=== PATIENT | male | born 1940 | race Caucasian/White ===

== ENCOUNTER 2025-06-14 10:04 | Outpatient (OUT) | payer MEDICARE, OTHER, SELFPAY ==
--- OUTSIDE RECORDS SUMMARY | 2025-06-14 10:13 | XMS_ITS | Clinical Summary ---
Author Organization [facility] Address [address] [address] Care Team Providers Care Nursing Technician Name Role Phone Unavailable Primary Care Provider Unavailabl e Social History Tobacco Use Types Packs/Day Years Used Date Smoking Tobacco: Never Assessed [place] Safety & Environment Answer Date Rec orded Fear of Current or Ex-Partner Not on file Emotionally Abused Not on file 12/26/2023 Physically Abused Not on file 12/26/2023 Sexually Abused Not on file 12/26/2023 Physically or Sexually Abused Not on file Sex and Gender Information Value Date Recorded Sex Assigned at Not on file Legal Sex Male 10:43 PM EDT Gender Identity Not on file Sexual Orientation Not on file Last Filed Vital Signs Vital Sign Reading Time Taken Comments Blood Pressure 136/91 05/26/2021 1:47 PM EDT Pulse 43 06/12/2019 9:44 AM EDT Temperature - - Respiratory Rate - - Oxygen Saturation 94% 05/26/2021 1:47 PM EDT Inhaled Oxygen Concentration - - Weight 98 kg (216 lb) 05/26/2021 1:42 PM EDT Height 175.3 cm (5' 9 ) 05/26/2021 1:42 PM EDT Body Mass Index 31.9 05/26/2021 1:42 PM EDT Plan of Treatment Health Maintenance Due Date Last Done Comments Medicare Annual Wellness (AWV) 1942 Depression Screening 1954 Adult Tetanus 1964 Pneumococcal Vaccine: 50+ Ye ars (1 of 1 - PCV) 1992 Zoster Vaccines (1 of 2) 1992 Fall Risk Screening 2007 COVID-19 Vaccine (2023-2 5 season) 2024 Influenza Vaccine (#1) 2025 HIB Vaccines Aged Out No longer eligi ble based on patient's age to complete this topic HPV Vaccines Aged Out No longer eligi ble based on patient's age to complete this topic IPV Vaccines Aged Out No longer eligi ble based on patient's age to complete this topic Meningococcal B Vaccine Aged Out No l onger eligible based on patient's age to complete this topic Meningococcal Vaccine Aged Out No jenifer mayo eligible based on patient's age to complete this topic Rotavirus Vaccines Aged Out No longer eligible based on patient's age to complete this [place] [phone]
--- OUTSIDE RECORDS SUMMARY | 2025-06-14 10:13 | XMS_ITS | Encounter Summary ---
Author Organization [facility] Address [address] [place] [address] Care Team Providers Care Gas Engine Repairer Name Role Phone Quinn Flynn MD Primary Care Provider Encounter Details Date Type Department Care Team (Late st Contact Info) Description 10/31/2023 Orders Only Dermatology [address] [address] Parth Melgar MD [address] [place] [address] Social History Tobacco Use Types Packs/Day Years Used Date Smoking Tobacco: Former Cigarettes 1 1957 Smokeless Tobacco: Never Sex and Gender Information Value Date Recorded Sex Assigned at Not on file Legal Sex Male 4:40 PM EST Gender Identity Not on file Sexual Orientation Not on file documented as of this encounter Plan of Treatment Upcoming Encounters Date Type Department Care Team (Late st Contact Info) Description 10/13/2025 11:30 AM EST Office Visit Dermatology [address] [address] Priscila Rutledge PA-C [address] [place] [address] documented as of this encounter Procedures Procedure Name Priority Date/Time Associated Diagnosis Comments SPLIT BIOPSY DERM Routine 10/31/2023 2:0 4 PM EST documented in this encounter Results * Split Biopsy Derm (10/31/2023 2:04 PM EST) Shave Bx (Right Forehead) 10/31/2023 2:04 PM EST Shave Bx (Mid Lower Back) 10/31/2023 2:06 PM EST Impressions [facility] - 11/11/2023 9:38 PM EST CASE: [id number] PATIENT: KINDRA LUJAN DIAGNOSIS: B: RIGHT UPPER FOREHEAD ACTINIC KERATOSIS ARISING IN SOLAR LENTIGO. C: LOWER BACK MELANOCYTIC NEVUS, COMPOUND TYPE. MICROSCOPIC: B: RIGHT UPPER FOREHEAD An actinic (solar) keratosis is present which displays foci of parakeratosis. Below the zones of parakeratosis there is disorderly maturation of the stratified squamous epithelium with pleomorphic and dyskeratotic keratinocytes. The underlying dermis is solar damaged. The stratum corneum is basket weave. The epithelium shows lentiginous epidermal hyperplasia with budding and elongation of the rete ridges. There is hyperpigmentation of basilar keratinocytes and slightly increased numbers of solitary melanocytes along the basal layer. The papillary dermis displays a sparse perivascular lymphocytic infiltrate with melanophages. The dermis is solar damaged. Multiple profiles were examined. Melan-A immunostaining fails to reveal a melanocytic proliferation. I have personally reviewed the slide quality of the immunohistochemical stain(s). The negative and positive controls were appropriate and adequate for the IHC stains listed. C: LOWER BACK A melanocytic nevus of the compound type is present characterized by a regular arrangement of nests of melanocytes along the dermo-epidermal junction and maturing nests of nevus cells in the dermis. Multiple profiles were examined. Melan-A immunostain supports the diagnosis. I have personally reviewed the slide quality of the immunohistochemical stain(s). The negative and positive controls were appropriate and adequate for the IHC stains listed. Date of Report: 11/11/2023 Received from the laboratory are two microscopic glass slides labeled B and C. The referring physician retained specimen A. LOCATION AND CLINICAL IMPRESSION OF REFERRING PHYSICIAN: B. RIGHT UPPER FOREHEAD shave 0.9 x 0.6 x 0.1cm seborrheic keratosis vs. lentigo maligna C. LOWER BACK shave 0.9 x 0.5 x 0.1cm seborrheic keratosis vs. lentigo maligna Charlotte Rogers MD, Dermatopathologist Electronically authenticated 11/11/2023; 21:37 Priscila TERRY LAB PATH/CYTO ORDERABLES Final Result [facility] [address] [place] [address], documented in this encounter Visit Diagnoses Not on filedocumented in this encounter Care Teams Gas Engine Repairer Relationship Specialty Start Date End Date Quinn Flynn MD [address] [place] [address] PCP - General 09/30/23 documented as of this encounter
--- OUTSIDE RECORDS SUMMARY | 2025-06-14 10:13 | XMS_ITS | Encounter Summary ---
Author Organization [facility] Address [address] [place] [address] Care Team Providers Care Graining Operator Name Role Phone Quinn Flynn MD Primary Care Provider Encounter Details Date Type Department Care Team (Late st Contact Info) Description 11/29/2023 Documentation Dermatology [address] [address] Parth Melgar MD [address] [place] [address] Social History Tobacco Use Types Packs/Day [...] 10/13/2025 11:30 AM EST Office Visit Dermatology [address] [address] Priscila Rutledge PA-C [address] [place] [address] documented as of this encounter Visit Diagnoses Not on filedocumented in this encounter Care Teams Graining Operator Relationship Specialty Start Date End Date Quinn Flynn MD Alex SW[address] [place] [address] PCP - General 09/30/23 documented as of this encounter
--- OUTSIDE RECORDS SUMMARY | 2025-06-14 10:13 | XMS_ITS | Encounter Summary ---
Author Organization [facility] Address [address] [place] [address] Care Team Providers Care Head Porter Name Role Phone Quinn Flynn MD Primary Care Provider Encounter Details Date Type Department Care Team (Late Contact Info) Description 04/27/2025 Results Follow-Up Dermatology [place] [address] [place] [address] Daisy Muñoz RMA [address] [place] [address] BIOPSY DERMATOLOGY Social History Tobacco Use Types Packs/Day Years Used Date Smoking Tobacco: Former Cigarettes 1957 Smokeless Tobacco: Never Sex and Gender Information Value Date Recorded Sex Assigned at Not on file Legal Sex Male 4:40 PM EST Gender Identity Not on file Sexual Orientation Not on file documented as of this encounter Plan of Treatment Upcoming Encounters Date Type Department Care Team (Late st Contact Info) Description 10/13/2025 11:30 AM EST Office Visit Dermatology [place] [address] [place] [address] Priscila Rutledge PA-C [address] [place] [address] documented as of this encounter Visit Diagnoses Not on filedocumented in this encounter Care Teams Head Porter Relationship Specialty Start Date End Date Quinn Flynn MD [address] [place] [address] PCP - General 09/30/23 documented as of this encounter
--- OUTSIDE RECORDS SUMMARY | 2025-06-14 10:13 | XMS_ITS | Encounter Summary ---
Author Organization [facility] Address [address] [place] [address] Care Team Providers Care Energy Conservation Engineer Name Role Phone Quinn Flynn MD Primary Care Provider Encounter Details Date Type Department Care Team (Late st Contact Info) Description 10/20/2024 Orders Only Dermatology [address] [address] Parth Melgar MD [address] [place] [address] Social History Tobacco Use Types Packs/Day [...] 11:30 AM EST Office Visit Dermatology [address] [address] Priscila Rutledge PA-C [address] [place] [address] documented as of this encounter Procedures Procedure Name Priority Date/Time Associated Diagnosis Comments SPLIT BIOPSY DERM Routine 10/20/2024 10: 25 AM EST documented in this encounter Results * Split Biopsy Derm (10/20/2024 10:25 AM EST) Shave Bx (Left Monroe) 10/20/2024 10:25 AM EST Shave Bx (Left Neck) 10/20/2024 10:25 AM EST Impressions [facility] - 11/03/2024 1:09 PM EST CASE: [id number] PATIENT: KINDRA LUJAN DIAGNOSIS: A: LEFT ANABAPTIST ACTINIC (SOLAR) KERATOSIS, LICHENOID. B: LEFT NECK SEBORRHEIC KERATOSIS, PIGMENTED. MICROSCOPIC: A: LEFT ANABAPTIST In this biopsy specimen there is orthokeratosis alternating with parakeratosis. Below the zones of parakeratosis there is disorderly maturation of the stratified squamous epithelium with pleomorphic and dyskeratotic keratinocytes. There is dense lichenoid inflammation. The underlying dermis is solar damaged. B: LEFT NECK The specimen displays accentuation of normal basket weave stratum corneum. There is papillomatosis and epidermal hyperplasia. Occasional pseudocysts of horn are present. The proliferation is composed of a population of uniform, basaloid keratinocytes with increased melanin pigmentation. A Melan-A stain highlights the melanocytes in this specimen, and supports the diagnosis. Controls were run and stain appropriately. Date of Report: 10/27/2024 GROSS DESCRIPTION Received are (A) shave biopsy measuring 0.8 x 0.7 x 0.1 cm, (B) shave biopsy measuring 0.6 x 0.6 x 0.1 cm, and (C) shave biopsy measuring 0.5 x 0.4 x 0.1 cm. Specimen(s) is/are formalin-fixed and paraffin-embedded. LOCATION AND CLINICAL IMPRESSION OF REFERRING PHYSICIAN: A. LEFT ANABAPTIST basal cell carcinoma B. LEFT NECK seborrheic keratosis vs. lentigo maligna The referring physician retained specimen C. Kenroy Cm Jr., MD, Dermatopathologist Electronically authenticated 11/03/2024; 13:09 us Priscila TERRY LAB PATH/CYTO ORDERABLES Final Result [facility] [address] [place] [address], documented in this encounter Visit Diagnoses Not on filedocumented in this encounter Care Teams Energy Conservation Engineer Relationship Specialty Start Date End Date Quinn Flynn MD [address] [place], [place] [address] [place] [address] PCP - General 09/30/23 documented as of this encounter
--- OUTSIDE RECORDS SUMMARY | 2025-06-14 10:13 | XMS_ITS | Encounter Summary ---
Author Organization [facility] Address [address] [place] [address] Care Team Providers Care Software Configuration Specialist Name Role Phone Quinn Flynn MD Primary Care Provider [phone] Encounter Details Date Type Department Care Team (Late st Contact Info) Description 11/29/2023 Documentation Dermatology [address] [address] Parth Melgar MD [address] [place] [address] Social History Tobacco Use Types Packs/Day [...] 10/13/2025 11:30 AM EST Office Visit Dermatology [address] [address] Priscila Rutledge PA-C [address] [place] [address] documented as of this encounter Visit Diagnoses Not on filedocumented in this encounter Care Teams Software Configuration Specialist Relationship Specialty Start Date End Date Quinn Flynn MD Alex [address] [place] [address] PCP - General 09/30/23 documented as of this encounter
--- OUTSIDE RECORDS SUMMARY | 2025-06-14 10:13 | XMS_ITS | Encounter Summary ---
Author Organization [facility] Address [address] [place] [address] Care Team Providers Care Head Well Puller Name Role Phone Quinn Flynn MD Primary Care Provider Encounter Details Date Type Department Care Team (Late st Contact Info) Description 11/28/2023 Documentation Dermatology [address] [address] June Felipe RMA [address] [place] [address] Social History Tobacco Use Types Packs/Day [...] 10/13/2025 11:30 AM EST Office Visit Dermatology [place] [address] [place] [address] Priscila Rutledge PA-C [address] [place] [address] documented as of this encounter Visit Diagnoses Not on filedocumented in this encounter Care Teams Head Well Puller Relationship Specialty Start Date End Date Quinn Flynn MD [address] [place] [address] PCP - General 09/30/23 documented as of this encounter
--- OUTSIDE RECORDS SUMMARY | 2025-06-14 10:13 | XMS_ITS | Clinical Summary ---
Author Organization [facility] Address [address] [place] [address] Care Team Providers Care Cellular Plastics Cutter Name Role Phone Quinn Flynn MD Primary Care Provider [phone] Allergies Active Allergy Reactions Criticality Noted Date Comments Adhesive Other (see comments) Low 11/30/2024 Fentanyl Itching,Rash Low 11/30/2024 Shellfish Containing Products Nausea Only High 10/22 Zolpidem Other (see comments) Low 10/22/2014 Medications atorvastatin (LIPITOR) 80 mg tablet 08/02/2023 Active traZODone (DESYREL) 50 mg tablet 10/11/2023 Active warfarin (COUMADIN) 5 mg tablet 10/15/2023 Active metoprolol tartrate (LOPRESSOR) 50 mg tablet Take 50 mg daily by mouth. Active aspirin 81 mg tablet Take 81 mg daily by mouth. Active gabapentin (NEURONTIN) 600 mg tablet Take 600 mg daily by mouth. Active folic acid (FOLVITE) 1 mg tablet Take 1 mg daily by mouth. Active Active Problems No known active problems Encounters Date Type Department Care Team Description 04/27/2025 Results Follow-Up Dermatology [address] [address] Daisy Muñoz RMA BIOPSY DERMATOLOGY 04/21/2025 8:30 AM EDT Office Visit Dermatology [address] [address] Ann Summers PA Neoplasm of uncertain behavior of skin (Primary Dx); Personal history of other malignant neoplasm of skin; Seborrheic keratoses; Melanocytic nevus, unspecified location; Actinic degeneration from Last 3 Months Social History Tobacco Use Types Packs/Day Years Used Date Smoking Tobacco: Former Cigarettes 1 951 - 1957 Smokeless Tobacco: Never Tobacco Cessation:Counseling Given: Not Answered Sex and Gender Information Value Date Recorded Sex Assigned at Not on file Legal Sex Male 4:40 PM EST Gender Identity Not on file Sexual Orientation Not on file Last Filed Vital Signs Vital Sign Reading Time Taken Comments Blood Pressure - - Pulse - - Temperature - - Respiratory Rate - - Oxygen Saturation - - Inhaled Oxygen Concentration - - Weight 99.8 kg (220 lb) 04/21/2025 8:32 AM EDT Height 177.8 cm (5' 10 ) 04/21/2025 8:32 AM EDT Body Mass Index 31.57 04/21/2025 8:32 AM EDT Plan of Treatment Upcoming Encounters Date Type Department Care Team (Late st Contact Info) Description 10/13/2025 11:30 AM EST Office Visit Dermatology [place] [address] [place] [address] Priscila Rutledge PA-C [address] [place] [address] Health Maintenance Due Date Last Done Comments Cognitive Assessment 1942 Eye Exam 1942 Medicare Wellness Visit 1942 PSA 1942 MMR Vaccines (1 of 1 - Stand lizandro series) 1943 DTaP,Tdap,and Td Vaccines (1 - Tdap) 1954 Varicella Vaccines (1 of 2 - 13+ 2-dose series) 1955 Complete Physical 1960 Health Maintenance Reviewed 1960 Lipid Panel 1960 Pneumococcal Vaccine: 65+ Ye ars (1 of 1 - PCV) 1992 Zoster (Shingrix) Vaccines ( 1 of 2) 1992 RSV Immunization (1 - 1-dose 75+ series) 2017 COVID-19 Vaccine (2 - 2023-2 5 season) 2024 10/23/2021 Influenza Vaccine (#1) 2025 Total Body Exam 04/21/2026 04/21/2025 HIB Vaccines Aged Out No longer eligi ble based on patient's age to complete this topic HPV Vaccines Aged Out No longer eligi ble based on patient's age to complete this topic Hepatitis A Vaccines Aged Out No long er eligible based on patient's age to complete this topic IPV Vaccines Aged Out No longer eligi ble based on patient's age to complete this topic Meningococcal Vaccine Aged Out No jenifer mayo eligible based on patient's age to complete this topic Procedures Procedure Name Priority Date/Time Associated Diagnosis Comments BIOPSY DERMATOLOGY Routine 04/21/2025 8: 27 AM EDT Neoplasm of uncertain behavior of skin Personal history of other malignant neoplasm of skin Seborrheic keratoses Melanocytic nevus, unspecified location from Last 3 Months Results * BIOPSY DERMATOLOGY (04/21/2025 8:27 AM EDT) Shave Bx (Skin) 04/21/2025 8 :27 AM EDT Impressions [facility] - 04/26/2025 2:42 PM EDT CASE: [id number] PATIENT: KINDRA LUJAN DIAGNOSIS: A: MID PARIETAL SCALP SEBORRHEIC KERATOSIS - INFLAMED. MICROSCOPIC: A: MID PARIETAL SCALP The specimen displays accentuation of normal basket weave stratum corneum. There is papillomatosis and epidermal hyperplasia. Occasional pseudocysts of horn are present. The proliferation is composed of a population of uniform, basaloid keratinocytes. The lesion is inflamed. In order to better characterize this specimen, SOX10 immunohistochemical stain was performed and compared to appropriate controls. SOX10 stain highlights melanocytes and outlines their distribution. GROSS DESCRIPTION: Received is specimen A (shave biopsy measuring 0.6 x 0.6 x 0.1 cm). The specimen is formalin-fixed and paraffin-embedded. LOCATION AND CLINICAL IMPRESSION OF REFERRING PHYSICIAN: A. MID PARIETAL SCALP Seborrheic keratosis vs. lentigo maligna The physician professional service reflected in this report was performed at [facility], [address] [facility] [address]. Miley Gallagher MD, Dermatopathologist Electronically authenticated 04/26/2025; 14:42 Ann TERRY LAB PATH/CYTO ORDERABLES Final Result [facility] [address] [place] [address], [place] [phone] from Last 3 Months Insurance MEDICARE RAILROAD [facility] CHOICE/CHOICE PLUS Care Teams Cellular Plastics Cutter Relationship Specialty Start Date End Date Quinn Flynn MD [address] [place] [address] PCP - General 09/30/23
--- OUTSIDE RECORDS SUMMARY | 2025-06-14 10:13 | XMS_ITS | Clinical Summary ---
Author Organization [facility] Healthcare Address [address] [place] [address] Care Team Providers Care Sponge Maker Name Role Phone Unavailable Primary Care Provider Unavailabl e Social History Tobacco Use Types Packs/Day Years Used Date Smoking Tobacco: Never Assessed Sex and Gender Information Value Date Recorded Sex Assigned at Not on file Legal Sex Male 8:35 PM EDT Gender Identity Not on file Sexual Orientation Not on file Last Filed Vital Signs Vital Sign Reading Time Taken Comments Blood Pressure 118/79 07/24/2021 12:00 PM EDT Pulse - - Temperature - - Respiratory Rate - - Oxygen Saturation - - Inhaled Oxygen Concentration - - Weight 98.9 kg (218 lb) 07/24/2021 12:00 PM EDT Height 177.8 cm (5' 10 ) 07/24/2021 12:00 PM EDT Body Mass Index 31.28 07/24/2021 12:00 PM EDT Plan of Treatment Not on [place] [id number]
--- OUTSIDE RECORDS SUMMARY | 2025-06-14 10:13 | XMS_ITS | Encounter Summary ---
Author Organization [facility] Address [address] [place] [address] Care Team Providers Care Ball Rolling Machine Operator Name Role Phone Unavailable Primary Care Provider Unavailabl e Reason for Visit * Reason Comments Med Refill Encounter Details Date Type Department Care Team (Late st Contact Info) Description 02/05/2023 Refill [facility] Cardiology [address] [place] [phone] Emily Hightower, DIRECTOR OF BUSINESS SERVICES [address] [place] [address] Social History Tobacco Use Types Packs/Day Years Used Date Smoking Tobacco: Never Assessed Sex and Gender Information Value Date Recorded Sex Assigned at Not on file Legal Sex Male 10:43 PM EDT Gender Identity Not on file Sexual Orientation Not on file documented as of this encounter Plan of Treatment Not on file documented as of this encounter Visit Diagnoses Not on filedocumented in this encounter
[2025-06-14 10:35] LABS: Glucose Urine UA NEGATIVE (NEGATIVE)
[2025-06-14 11:35] LABS: Cast Seen? NONE SEEN #/LPF (NONE SEEN); Crystals Seen? Seen #/HPF (None Seen); Urine Culture Indicated NO
== END 2025-06-14 10:05 | disposition home or self-care (01) ==
PROVIDERS: Visit Provider Internal Medicine
DX: R30.0 Dysuria (principal)
CPT/HCPCS: 81001; 87086